=== PATIENT | male | born 1985 | race Caucasian/White ===

== ENCOUNTER 2017-09-07 12:17 | Emergency (ER) | payer SELFPAY ==
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
== END 2017-09-07 12:50 | disposition home or self-care (01) ==
LOC: ER 12:17
DX: S50.812A Abrasion of left forearm, initial encounter (principal); S90.811A Abrasion, right foot, initial encounter; I10 Essential (primary) hypertension; V49.40XA Driver injured in collision with unspecified motor vehicles in traffic accident, initial encounter; Y93.89 Activity, other specified; Y92.89 Other specified places as the place of occurrence of the external cause; Y99.8 Other external cause status
CPT/HCPCS: Z7502